=== PATIENT | male | born 1985 | race Caucasian/White ===

== ENCOUNTER 2020-07-18 19:25 | Emergency (ER) | payer OTHER ==
[2020-07-18 21:18] LABS: BILIRUBIN NEGATIVE (NEGATIVE); BLOOD NEGATIVE Ery/uL (NEGATIVE); CLARITY CLEAR (CLEAR); COLOR YELLOW (YELLOW); GLUCOSE (U) NORMAL (NORMAL); LEUKOCYTES NEGATIVE Leu/uL (NEGATIVE); NITRITE NEGATIVE (NEGATIVE); PROTEIN NEGATIVE (NEGATIVE); SPECIFIC GRAVITY 1.025 (1.001-1.030); pH 6.5 (5.0-9.0)
[2020-07-18 21:20] LABS: BASOPHIL 0.3 % (0-2); EOSINOPHIL 1.2 % (0-5); HCT 46.8 % (42.0-52.0); HGB 15.8 g/dl (13.2-18.0); LYMPHOCYTE 40.5 % (15-48); MCH 32.5 pg (25.0-31.0); MCHC 33.8 g/dL (32.0-36.0); MCV 96.3 fL (78.0-100.0); MONOCYTE 5.9 % (0-12); NEUTROPHIL 51.4 % (41-80); NRBC 0; PLT 189 K/uL (150-400); RBC 4.86 M/uL (4.70-6.00); WBC 10.5 K/uL (4.0-10.5)
[2020-07-18 21:30] LABS: BUN/CREAT RATIO (CALC) 11.1 RATIO; CREATININE 1.17 mg/dL (0.67-1.17); POTASSIUM 4.2 mmol/L (3.5-5.1)
[2020-07-18 21:56] LABS: AMPHETAMINES NEGATIVE (NEGATIVE); BARBITURATES NEGATIVE (NEGATIVE); ECSTASY (MDMA) NEGATIVE (NEGATIVE); MARIJUANA (THC) NEGATIVE (NEGATIVE); METHADONE NEGATIVE (NEGATIVE); OPIATES NEGATIVE (NEGATIVE); OXYCODONE NEGATIVE (NEGATIVE)
[2020-07-19] MEDS ORDERED: TOBRAMYCIN5 ML OS (02:28)
== END 2020-07-19 02:46 | disposition home or self-care (01) ==
LOC: FER 19:25
PROVIDERS: Emergency Medicine
DX: H10.9 Unspecified conjunctivitis (principal); R07.9 Chest pain, unspecified; I10 Essential (primary) hypertension; F17.200 Nicotine dependence, unspecified, uncomplicated
CPT/HCPCS: 36415; 71045; 71275; 80048; 80305; 81003; 84484; 85025; 85379; 87040; 93005; J1885; Q9967